=== PATIENT | female | born 1960 | race Caucasian/White ===

== ENCOUNTER 2023-07-19 21:05 | Outpatient (REF) | payer MEDICARE, SELFPAY ==
[2023-07-24 18:07] LABS: Age Gdln ACOG Testing Note (.); HPV Aptima Negative (Negative); IGP, Aptima HPV, rfx 16/18,45 Note (.)
== END 2023-07-19 21:06 | disposition home or self-care (01) ==
LOC: LAB 21:05
PROVIDERS: Visit Provider Physician Assistant
DX: Z12.4 Encounter for screening for malignant neoplasm of cervix (principal)
CPT/HCPCS: 87624; G0145

== ENCOUNTER 2024-12-08 20:05 | Outpatient (REF) | payer MEDICARE, SELFPAY ==
[2024-12-13 07:08] LABS: Age Gdln ACOG Testing Note (.); Pap IG (Image Guided) Note (.)
== END 2024-12-08 20:06 | disposition home or self-care (01) ==
LOC: LAB 20:05
PROVIDERS: Visit Provider Physician Assistant
DX: Z01.419 Encounter for gynecological examination (general) (routine) without abnormal findings (principal)
CPT/HCPCS: 88175